=== PATIENT | female | born 1990 | race Caucasian/White ===

== ENCOUNTER 2016-08-02 09:28 | Emergency (ER) | payer BC ==
[~2016-08-02] VITALS: Ht 165.1 cm; Wt 84.0 kg
[2016-08-02 09:44] VITALS: BP 144/90; PULSE 90; RESP 16; TEMP 98.3; O2SAT 100
[2016-08-02] MEDS ORDERED: AMOX500T PO (10:30)
[2016-08-02] MEDS ORDERED: KETOROLAC TROMETHAMINE 60 MG/2 ML (IM) VIAL IM ONE (11:00)
[2016-08-02] MEDS ORDERED: CORTISPORIN OTIC SUS EACH EAR (11:01)
[2016-08-02] MEDS ORDERED: CIPR-9 PO (11:01)
[2016-08-02] MEDS ORDERED: NORC5TAB PO (11:01)
--- NOTE | 2016-08-02 11:01 | PD ---
HPI Chief Complaint: ENT Complaint Time Seen by Provider: 10:49 Travel History International Travel<30 days: No Contact w/Intl Traveler<30days: No Traveled to known affect area: No History of Present Illness HPI 35-year-old female complains of bilateral ear pain. Patient states that the symptoms started 3 days ago. Patient was seen and urgent care center and given prescription for amoxicillin. Patient states that she has increasing pain despite taking the antibiotic. Patient stated pain sharp severe pain localized to both ears. Patient denies any pain radiation. Patient complains of swollen glands of the neck also. Patient denies any sore throat. Patient denies any coughing congestion. Patient denies any fever chills. PFSH Past Medical History Medical History: Denies Significant Hx Diminished Hearing: No Tetanus Vaccination: < 5 Years ?: Not Past Surgical History Surgical History: No Previous Surgery Social History Alcohol Use: No Tobacco Use: No Allergies-Medications (Allergen,Severity, Reaction): Coded Allergies: Benadryl (Verified Allergy, Severe, 08/02/16) Reported Meds & Prescriptions Reported Meds & Active Scripts Active Reported Amoxicillin 500 Mg Tab 0 PO BID Review of Systems General / Constitutional: No: Fever Eyes: No: Visual changes HENT: Positive: Earache, No: Headaches Cardiovascular: No: Chest Pain or Discomfort Respiratory: No: Shortness of Breath Gastrointestinal: No: Abdominal Pain Genitourinary: No: Dysuria Musculoskeletal: No: Pain Skin: No Rash Neurologic: No: Weakness Psychiatric: No: Depression Endocrine: No: Polydipsia Hematologic/Lymphatic: No: Easy Bruising Physical Exam Narrative GENERAL: Well-nourished, well-developed patient. SKIN: Focused skin assessment warm/dry. HEAD: Normocephalic. EYES: No scleral icterus. No injection or drainage. Both ear canals inflame and tenderness on palpation. Unable to visualize the TMs. NECK: Supple, trachea midline. No JVD. Patient has mild anterior cervical lymphadenopathy. No meningismus CARDIOVASCULAR: Regular rate and rhythm without murmurs, gallops, or rubs. RESPIRATORY: Breath sounds equal bilaterally. No accessory muscle use. GASTROINTESTINAL: Abdomen soft, non-tender, nondistended. MUSCULOSKELETAL: No cyanosis, or edema. BACK: Nontender without obvious deformity. No CVA tenderness. Data Data Last Documented VS Vital Signs Date Time Temp Pulse Resp B/P Pulse Ox O2 Delivery O2 Flow Rate FiO2 08/02/16 09:44 98.3 90 16 144/90 100 Orders Ketorolac Inj (Toradol Inj) (08/02/16 11:00) [facility] Medical Decision Making Medical Screen Exam Complete: Yes Emergency Medical Condition: Yes Differential Diagnosis Differential diagnosis including otitis externa, otitis media. Narrative Course 25-year-old female with severe bilateral ear pain. Physical exam consistent with otitis externa bilaterally. Toradol 60 mg IM. Bilateral ear irrigation with warm water. Procedures Procedure Narrative Gentle bilateral ear irrigation with warm water. Diagnosis Primary Impression: Bilateral otitis externa Qualified Code: H60.333 - Acute swimmer's ear of both sides Patient Instructions: General Instructions Additional Instructions: Stop amoxicillin. Take medications as directed. Follow-up with personal physician. Return if persistent problem or worse. Follow up with ENT if persistent problem. Med/Other Pt SpecificInfo: Prescription(s) given Scripts [Cortisporin Otic Viky] No Conflict Check4 Drop EACH EAR TID #1 Prov:Sterling Simon MD 08/02/16 Hydrocodone-Acetaminophen ([place])5-325 mg Tab1 Tab PO Q6H PRN (PAIN) #30 TAB Ref 0 Prov:Sterling Simon MD 08/02/16 Ciprofloxacin (Cipro)500 Mg Yah071 Mg PO BID #20 TAB Ref 0 Prov:Sterling Simon MD 08/02/16 Disposition: 01 DISCHARGE HOME Condition: Stable Sterling Simon MD Aug 02, 2016 11:01
== END 2016-08-02 11:19 | disposition home or self-care (01) ==
LOC: PHED 09:28 → PHEFT 11:19
DX: H60.333 Swimmer's ear, bilateral (principal)
CPT/HCPCS: 96372; 99284; J1885

== ENCOUNTER 2016-09-16 20:22 | Emergency (ER) | payer BC ==
[~2016-09-16 20:22] MED LIST: AMOX500T PO; CIPR-9 PO; CORTISPORIN OTIC SUS EACH EAR; NORC5TAB PO
[2016-09-16 20:41] VITALS: BP 139/67; PULSE 92; RESP 20; TEMP 99.1; O2SAT 95
[2016-09-16] MEDS ORDERED: DEXAMETHASONE SOD PHOS 4 MG/ML VIAL IM ONE (21:15)
[2016-09-16] MEDS ORDERED: FAMOTIDINE 20 MG TAB PO ONE (21:15)
[2016-09-16] MEDS ORDERED: SULFAMETHOXAZOLE-TRIMETHOPRIM DS 800-160 MG TAB PO ONE (21:15)
--- NOTE | 2016-09-16 21:20 | PD ---
HPI Chief Complaint: Skin Problem Time Seen by Provider: 21:00 Travel History International Travel<30 days: No Contact w/Intl Traveler<30days: No Traveled to known affect area: No History of Present Illness HPI 25-year-old female presents to the emergency room for evaluation of a raised red lesion to her right thigh that started last night. Patient states she got bit by a flying ant and the redness has been growing since then. She outlined the area in marker and states within one hour it had extended several centimeters outside the marked line. Reports minimal itchiness. Denies pain, fever, chills, nausea, and vomiting. She denies sore throat, chest pain, or shortness of breath. States she has long history of allergies but stopped taking her daily medications because it was giving her a headache. She cannot take Benadryl because it gives her hives. PFSH Past Medical History Diminished Hearing: No ?: Not Social History Alcohol Use: Yes (SOCAILLY) Tobacco Use: No Substance Use: No Allergies-Medications (Allergen,Severity, Reaction): Coded Allergies: Benadryl (Verified Allergy, Severe, 09/16/16) Reported Meds & Prescriptions Reported Meds & Active Scripts Active No Active Prescriptions or Reported Medications Review of Systems Except as stated in HPI: all other systems reviewed are Neg Physical Exam Narrative GENERAL: Well-nourished, well-developed female in no acute distress. Afebrile. Ambulatory. SKIN: Focused skin assessment warm/dry. There is a 23 cm x 13 cm area of erythema and induration on the right posterior thigh. It is raised but not fluctuant. No lymphangitis. HEAD: Normocephalic. EYES: No scleral icterus. No injection or drainage. ENT: Mucosa pink and moist. No erythema or exudates. No uvular edema. No uvular , palatal, or tonsillar deviation. Airway patent. NECK: Supple, trachea midline. No JVD or lymphadenopathy. CARDIOVASCULAR: Regular rate and rhythm without murmurs, gallops, or rubs. RESPIRATORY: Breath sounds equal bilaterally. No accessory muscle use. PSYCHIATRIC: No delusional thought processes. No hallucinations. Data Data Last Documented VS Vital Signs Date Time Temp Pulse Resp B/P Pulse Ox O2 Delivery O2 Flow Rate FiO2 09/16/16 20:41 99.1 92 20 139/67 95 Orders Sulfamet-Trimeth Ds 800-160 Mg (Bactrim (09/16/16 21:15) Dexamethasone Inj (Decadron Inj) (09/16/16 21:15) Famotidine (Pepcid) (09/16/16 21:15) Hydroxyzine Pamoate (Vistaril) (09/16/16 21:15) MDM Medical Decision Making Medical Screen Exam Complete: Yes Emergency Medical Condition: Yes Medical Record Reviewed: Yes Differential Diagnosis Cellulitis, urticaria, allergic reaction Narrative Course 25-year-old female presents to the emergency room for evaluation of itchy hives to her right posterior leg that started after being bitten by a flying ant yesterday. Patient denies any systemic signs of infection or allergic reaction. She is afebrile and well-appearing in the emergency room. Physical exam reveals a 23 x 13 cm area of raised erythema. Nontender to palpation. No fluctuance or lymphangitis. Lung sounds clear and equal bilaterally. ENT exam unremarkable. This is likely allergic reaction to bite the patient will be covered for infection as well. She was given Vistaril, Pepcid, and Decadron in the emergency room as well as first dose of Bactrim. Discharged with prescription for Bactrim and steroids. Told to follow-up with a primary care physician or return for worsening symptoms. She understands and agrees to plan. Diagnosis Primary Impression: Giant hives Qualified Code: T78.3XXA - Giant hives, initial encounter Additional Impression: Cellulitis, leg Qualified Code: L03.115 - Cellulitis of right lower extremity Referrals: Primary Care Physician Patient Instructions: Cellulitis (ED), General Instructions, Urticaria (ED) Additional Instructions: Rest and drink plenty of fluids. Take Bactrim as directed, until gone. Take steroids as directed, until gone. Follow up with a primary care physician. Return to emergency room for worsening symptoms, as discussed. Med/Other Pt SpecificInfo: Prescription(s) given Scripts No Active Prescriptions or Reported Meds Disposition: 01 DISCHARGE HOME Condition: Stable Catrachita Toussaint Sep 16, 2016 21:20
[2016-09-16] MEDS ORDERED: BACT800T5 PO (21:21)
[2016-09-16] MEDS ORDERED: PRED20 PO (21:21)
== END 2016-09-16 21:25 | disposition home or self-care (01) ==
LOC: PHEFT 20:22
DX: T78.3XXA Angioneurotic edema, initial encounter (principal); L03.115 Cellulitis of right lower limb; W57.XXXA Bitten or stung by nonvenomous insect and other nonvenomous arthropods, initial encounter
CPT/HCPCS: 96372; 99284; J1100

== ENCOUNTER 2017-04-06 13:58 | Emergency (ER) | payer SELFPAY ==
[~2017-04-06] VITALS: Ht 165.1 cm; Wt 87.0 kg
[~2017-04-06 13:58] MED LIST changes: -AMOX500T PO; +BACT800T5 PO; -CIPR-9 PO; -CORTISPORIN OTIC SUS EACH EAR; -NORC5TAB PO; +PRED20 PO
[2017-04-06 14:03] VITALS: BP 146/67; PULSE 98; RESP 16; TEMP 98.1; O2SAT 98
--- NOTE | 2017-04-06 14:30 | PD ---
HPI Chief Complaint: Skin Problem Time Seen by Provider: 14:12 Travel History International Travel<30 days: No Contact w/Intl Traveler<30days: No Traveled to known affect area: No History of Present Illness HPI 26-year-old female presents to the emergency room for evaluation of a mildly tender, hard lump to her left groin that she noticed yesterday. States it has grown significantly since then. Pain only occurs with certain movement and if she pushes on it. Pain is mild. States she just began working out recently. She is not lifting anything heavy but rowing about 30 pounds and pulling about 90. She denies any abnormal vaginal discharge, fevers, chills, nausea, vomiting , diarrhea, or constipation. She has not taken anything for symptoms. Last menstrual cycle was about 1 week ago. She is not currently sexually active. No chronic medical conditions or daily medications. PFSH Past Medical History Medical History: Denies Significant Hx Diminished Hearing: No Influenza Vaccination: No ?: Not LMP: ONE WEEK AGO Past Surgical History Surgical History: No Previous Surgery Social History Alcohol Use: Yes (SOCAILLY) Tobacco Use: Yes Substance Use: No Allergies-Medications (Allergen,Severity, Reaction): Coded Allergies: diphenhydramine (Unverified Allergy, Severe, HIVES, 04/06/17) Reported Meds & Prescriptions Reported Meds & Active Scripts Active No Active Prescriptions or Reported Medications Review of Systems Except as stated in HPI: all other systems reviewed are Neg Physical Exam Narrative GENERAL: Well-nourished, well-developed female no acute distress. Afebrile. Ambulatory. SKIN: Focused skin assessment warm/dry. HEAD: Normocephalic. EYES: No scleral icterus. No injection or drainage. NECK: Supple, trachea midline. No JVD or lymphadenopathy. CARDIOVASCULAR: Regular rate and rhythm without murmurs, gallops, or rubs. RESPIRATORY: Breath sounds equal bilaterally. No accessory muscle use. GASTROINTESTINAL: Abdomen soft, non-tender, nondistended. Data Data Last Documented VS Vital Signs Date Time Temp Pulse Resp B/P (MAP) Pulse Ox O2 Delivery O2 Flow Rate FiO2 04/06/17 14:03 98.1 98 16 146/67 (93) 98 MDM Medical Decision Making Medical Screen Exam Complete: Yes Emergency Medical Condition: Yes Medical Record Reviewed: Yes Differential Diagnosis Lymph node, hernia, abscess Narrative Course 26-year-old who presents to the emergency room for evaluation of a mildly painful lump to her left groin that started yesterday and has grown since then. Patient denies any recent sick symptoms, abdominal pain, nausea, vomiting, diarrhea, or vaginal discharge. Denies possibility of . Physical exam reveals a 1-2 cm mobile, mildly tender, hard lymph node in the left inguinal region. No surrounding erythema, fluctuance. There are no bowel sounds and it is hard not soft. I had my attending physician, Dr. Negron, assess the patient and she agrees it is a lymph node. Patient was told to follow-up with her primary care physician to evaluate for resolution or return for worsening symptoms. She understands and agrees to plan. Diagnosis Primary Impression: Inguinal lymphadenopathy Referrals: Primary Care Physician Additional Instructions: Warm compresses to the area twice daily for 20 minutes at a time. Followup with primary care physician. Return for worsening symptoms. Scripts No Active Prescriptions or Reported Meds Disposition: 01 DISCHARGE HOME Condition: Stable Catrachita Toussaint Apr 06, 2017 14:30
== END 2017-04-06 14:59 | disposition home or self-care (01) ==
LOC: PHEFT 13:58
DX: R59.0 Localized enlarged lymph nodes (principal); Z72.0 Tobacco use; Z88.8 Allergy status to other drugs, medicaments and biological substances
CPT/HCPCS: 99282